=== PATIENT | female | born 1955 | race Caucasian/White ===

== ENCOUNTER 2016-06-18 15:31 | Emergency (ER) | payer OTHER ==
[2016-06-18 15:43] VITALS: TEMP 97.7; BMI 29.2
--- NOTE | 2016-06-18 17:56 | PDOC ---
[id number] 4d FATIGUE, DIZZINESS, CHILLS Time Seen by Provider: 06/18/16 17:50 History Source: Patient Exam Limitations: No Limitations - History of Present Illness Initial Comments: 06/18/16 17:55 CHIEF COMPLAINT: Weakness HISTORY OF PRESENT ILLNESS: This is a 60 year old female with a history of depression, HTN, asthma, tobacco use (1 pack daily), appendectomy, umbilical hernia repair, and revision of her umbilical hernia repair approximately 3 months ago at [facility]. She presents today for evaluation of abdominal pain at the umbilical region, constipation, and abdominal distention. She is not nauseated and has been able to pass gas normally and has been able to have bowel movements if she takes stool softeners. She believes that the symptoms began one month ago when she screamed during a pelvic exam. Vital signs on arrival are unremarkable. PCP is Dr. Carranza. REVIEW OF SYSTEMS: GENERAL/CONSTITUTIONAL: No fever or chills. No weakness. No weight change. HEAD, EYES, EARS, NOSE AND THROAT: No change in vision. No ear pain or discharge. No sore throat. CARDIOVASCULAR: No chest pain or palpitations. RESPIRATORY: No cough, wheezing, or shortness of breath. GASTROINTESTINAL: See HPI. GENITOURINARY: No dysuria, frequency, or change in urination. MUSCULOSKELETAL: No joint or muscle swelling or pain. No neck or back pain. SKIN: No rash or easy bruising. NEUROLOGIC: No headache, vertigo, loss of consciousness, or loss of sensation. PSYCHIATRIC: No depression or anxiety. ENDOCRINE: No increased thirst. No abnormal weight change. HEMATOLOGIC/LYMPHATIC: No anemia, easy bleeding, or history of blood clots. ALLERGIC/IMMUNOLOGIC: No hives or skin allergy. No latex allergy. PHYSICAL EXAM: GENERAL: The patient is awake, alert, and fully oriented, in no acute distress. HEAD: Normal with no signs of trauma. ENT: Pupils equal, round and reactive to light, extraocular movements intact, sclera anicteric, conjunctiva clear. Neck supple. LUNGS: Clear to auscultation bilaterally. Normal excursion. No respiratory distress or use of accessory muscles. CV: RRR, S1/S2, no MRG. Cap refill < 2 sec. ABDOMEN: Soft, mildly distended, tender to deep palpation at umbilicus, bowel sounds normoactive. EXTREMITIES: Normal range of motion, no edema. NEUROLOGICAL: Normal speech, normal gait. CN II-XII grossly intact. PSYCH: Normal mood, normal affect. SKIN: Warm, dry, normal turgor, no rashes or lesions noted. Past History - Past Medical History Allergies/Adverse Reactions: Allergies Allergy/AdvReac Type Severity Reaction Status Date / Time No Known Allergies Allergy Verified 06/18/16 15:37 Home Medications: Ambulatory Orders Diazepam [Valium -] 10 mg PO BID 02/13/14 Paroxetine Mesylate [Pexeva] 10 mg PO DAILY 02/13/14 Trazodone HCl [Desyrel -] 50 mg PO HS 02/13/14 Oxycodone HCl/Acetaminophen [Percocet 10-325 mg Tablet] 1 each PO PRN 01/01/16 Oxycodone HCl/Acetaminophen [Percocet 5-325 mg Tablet -] 1 tab PO TID PRN #10 tablet MDD 3 01/01/16 Tramadol HCl [Ultram] 50 mg PO Q6H 06/18/16 Asthma: Yes CVA: No Diabetes: No HTN: Yes Suicide Attempt (Hx): No - Surgical History Abdominal Surgery: Yes (EXPLORATORY SX, UMBILICAL HERNIA REPAIR) Appendectomy: Yes - Immunization History Immunization Up to Date: No - Psycho/Social/Smoking Cessation Hx Anxiety: Yes Suicidal Ideation: No Smoking Status: No Smoking History: Current every day smoker Have you smoked in the past 12 months: Yes Number of Cigarettes Smoked Daily: 20 Information on smoking cessation initiated: No 'Breaking Loose' booklet given: 03/11/16 Hx Alcohol Use: No Drug/Substance Use Hx: No Substance Use Type: None *Physical Exam - Vital Signs Last Vital Signs Temp Pulse Resp BP Pulse Ox 97.7 F 76 16 119/73 95 06/18/16 15:38 06/18/16 15:38 06/18/16 15:38 06/18/16 15:38 06/18/16 15:38 Heart Score/ECG Review - ECG Intrepretation Comment:: 06/18/16 19:12 NSR, rate of 64, no ST or T wave changes ED Treatment Course - LABORATORY CBC & Chemistry Diagram: 06/18/16 18:08 06/18/16 18:08 - RADIOLOGY Radiology Studies Ordered: Category Date Time Status CHEST X-RAY PORTABLE* [RAD] Stat Radiology 06/18/16 17:54 Ordered Medical Decision Making - Medical Decision Making 06/18/16 19:09 A/P: 60 year old female with abdominal distention, constipation, and pain at site of umbilical hernia repair. 1. EKG 2. Basic labs 3. Morphine 4mg IVP for pain 4. CTAP with PO/IV contrast Patient developed redness in the arm proximal to injection site after receiving morphine. No shortness of breath, no redness or hives elsewhere. Benadryl 25mg IVP given. *DC/Admit/Observation/Transfer Diagnosis at time of Disposition: Abdominal pain Qualifiers: Abdominal location: upper abdomen, unspecified Qualified Code(s): R10.10 - Upper abdominal pain, unspecified - Discharge Dispostion Disposition: HOME Condition at time of disposition: Improved - Referrals Referrals: Shaheed Carranza MD [Primary Care Provider] - - Patient Instructions Printed Discharge Instructions: DI for Abdominal Pain-Adult Additional Instructions: FOLLOW UP WITH DR. CARRANZA THIS WEEK. CALL TO SCHEDULE APPOINTMENT. CONTINUE YOUR CURRENT MEDICATIONS PRESCRIBED. GET REST. EAT PLENTY FRUITS AND VEGGIES. DRINK PLENTY WATER. TYLENOL OR MOTRIN FOR PAIN NEEDED. Print Language: ICELANDIC
[2016-06-18] MEDS ORDERED: morphine CARPU-JECT 4 MG/1 ML DISP.SYRIN IVPUSH ONE (18:24)
[2016-06-18] MEDS ORDERED: ONDANSETRON 4 MG/2 ML VIAL IVPUSH ONE (18:24)
[2016-06-18] MEDS ORDERED: ONDANSETRON 4 MG/2 ML VIAL ONE (18:33)
[2016-06-18] MEDS ORDERED: morphine CARPU-JECT 4 MG/1 ML DISP.SYRIN ONE (18:33)
[2016-06-18 18:48] LABS: BASOPHIL 1.3 % (0-2.0); EOSINOPHIL 3.1 % (0-4.5); MCH 30.1 pg (25.7-33.7); MCHC 33.1 g/dl (32.0-36.0); MEAN CELL VOLUME 90.9 fl (80-96); MEAN PLT VOLUME 9.1 fl (7.5-11.1); NEUTROPHILS 57.7 % (42.8-82.8); PLATELET COUNT 175 K/MM3 (134-434); WHITE BLOOD COUNT 7.8 K/mm3 (4.0-10.0)
[2016-06-18 19:20] LABS: ALBUMIN 3.7 g/dl (3.4-5.0); ANION GAP 7 (8-16); BILIRUBIN,TOTAL 0.4 mg/dL (0.2-1.0); CALCIUM 8.9 mg/dL (8.5-10.1); CO2 31 mmol/L (21-32); CREATININE 0.8 mg/dL (0.55-1.02); GLUCOSE,RANDOM 92 mg/dL (74-106); SGOT/AST 12 U/L (15-37); SGPT/ALT 14 U/L (12-78); TOT PROT 7.7 g/dl (6.4-8.2)
[2016-06-18 19:23] LABS: ALK PHOS 90 U/L (45-117); TROPONIN I < 0.02 ng/ml (0.00-0.05)
--- NOTE | 2016-06-18 23:15 | PDOC ---
*Physical Exam - Vital Signs Last Vital Signs Temp Pulse Resp BP Pulse Ox 97.7 F 76 16 119/73 95 06/18/16 15:38 06/18/16 15:38 06/18/16 15:38 06/18/16 15:38 06/18/16 15:38 ED Treatment Course - LABORATORY CBC & Chemistry Diagram: 06/18/16 18:08 06/18/16 18:08 - ADDITIONAL ORDERS Additional order review: Laboratory Results 06/18/16 18:08 Sodium 139 Potassium 4.1 Chloride 101 Carbon Dioxide 31 D Anion Gap 7 L BUN 14 Creatinine 0.8 Creat Clearance w eGFR > 60 Random Glucose 92 Calcium 8.9 Total Bilirubin 0.4 D AST 12 L D ALT 14 Alkaline Phosphatase 90 Creatine Kinase 31 Troponin I < 0.02 Total Protein 7.7 Albumin 3.7 06/18/16 18:08 RBC 5.29 H MCV 90.9 MCHC 33.1 RDW 14.0 MPV 9.1 Neutrophils % 57.7 Lymphocytes % 31.7 Monocytes % 6.2 Eosinophils % 3.1 Basophils % 1.3 - Medications Given in the ED: ED Medications Discontinued Medications Generic Name Dose Route Start Last Admin Trade Name Freq PRN Reason Stop Dose Admin Diphenhydramine HCl 25 mg 06/18/16 18:46 06/18/16 19:00 Benadryl Injection - IVPUSH 06/18/16 18:47 25 mg ONCE ONE Administration Morphine Sulfate 4 mg 06/18/16 18:24 06/18/16 18:37 Morphine Injection - IVPUSH 06/18/16 18:25 4 mg ONCE ONE Administration Ondansetron HCl 4 mg 06/18/16 18:24 06/18/16 18:37 Zofran Injection IVPUSH 06/18/16 18:25 4 mg ONCE ONE Administration Progress Note - Progress Note Progress Note: SPOKE TO PATIENT REGARDING CT-SCAN RESULTS. (NEG). PATIENT REPORTS IMPROVEMENT IN HER SYMPTOMS. NO CHANGE IN APPETITE. CURRENTLY ON STOOL SOFTENERS. NOT CONSTIPATED. PATIENT PLAN IS TO FOLLOW UP WITH PMD THIS WEEK. *DC/Admit/Observation/Transfer Diagnosis at time of Disposition: Abdominal pain Qualifiers: Abdominal location: upper abdomen, unspecified Qualified Code(s): R10.10 - Upper abdominal pain, unspecified - Discharge Dispostion Disposition: HOME Condition at time of disposition: Improved Admit: No - Patient Instructions Printed Discharge Instructions: DI for Abdominal Pain-Adult Additional Instructions: FOLLOW UP WITH DR. CARRANZA THIS WEEK. CALL TO SCHEDULE APPOINTMENT. CONTINUE YOUR CURRENT MEDICATIONS PRESCRIBED. GET REST. EAT PLENTY FRUITS AND VEGGIES. DRINK PLENTY WATER. TYLENOL OR MOTRIN FOR PAIN NEEDED. Print Language: SERBIAN
[2016-06-18 23:34] VITALS: BP 121/70; PULSE 73
--- NOTE | 2016-06-19 10:36 | EKG ---
Test Reason : Blood Pressure : / mmHG Vent. Rate : 064 BPM Atrial Rate : 064 BPM P-R Int : 140 ms QRS Dur : 086 ms QT Int : 432 ms P-R-T Axes : 068 034 044 degrees QTc Int : 445 ms NORMAL SINUS RHYTHM NORMAL ECG WHEN COMPARED WITH ECG OF 30-DEC-2013 15:39, NO SIGNIFICANT CHANGE WAS FOUND Confirmed by VIANEY STINSON MD ([id number]) on 06/19/2016 10:36:09 AM Referred By: Confirmed By:VIANEY STINSON MD
== END 2016-06-18 23:35 | disposition home or self-care (01) ==
LOC: JER 15:31
PROC: 3E033GC Introduction of Other Therapeutic Substance into Peripheral Vein, Percutaneous Approach (ICD-10-PCS; principal; 2016-06-18)
PROC: 3E033NZ Introduction of Analgesics, Hypnotics, Sedatives into Peripheral Vein, Percutaneous Approach (ICD-10-PCS; 2016-06-18)
DX: R10.10 Upper abdominal pain, unspecified (principal); F32.9 Major depressive disorder, single episode, unspecified; I10 Essential (primary) hypertension; J45.909 Unspecified asthma, uncomplicated; Z98.890 Other specified postprocedural states; F17.210 Nicotine dependence, cigarettes, uncomplicated
CPT/HCPCS: 36415; 71010-TC; 74177-TC; 80053; 82550; 84484; 85025; 93005; 93010; 96374; 96375; 99283-25; Q9967

== ENCOUNTER 2018-09-28 11:43 | Emergency (ER) | payer OTHER ==
[2018-09-28 11:53] VITALS: BP 143/80; PULSE 75; TEMP 97.9; BMI 33.1
--- NOTE | 2018-09-28 12:39 | PDOC ---
History of Present Illness - General Chief Complaint: Injury Stated Complaint: FALL/ PELVIS PAIN Time Seen by Provider: 09/28/18 12:36 History Source: Patient - History of Present Illness Occurred: reports: other Severity: reports: moderate Past History - Past Medical History Allergies/Adverse Reactions: Allergies Allergy/AdvReac Type Severity Reaction Status Date / Time No Known Allergies Allergy Verified 09/28/18 11:53 Home Medications: Ambulatory Orders Diazepam [Valium -] 10 mg PO BID 02/13/14 Paroxetine Mesylate [Pexeva] 10 mg PO DAILY 02/13/14 traZODone HCL [Desyrel -] 50 mg PO HS 02/13/14 Oxycodone HCl/Acetaminophen [Percocet 10-325 mg Tablet] 1 each PO PRN 01/01/16 Oxycodone HCl/Acetaminophen [Percocet 5-325 mg Tablet -] 1 tab PO TID PRN #10 tablet MDD 3 01/01/16 traMADol HCL [Ultram] 50 mg PO Q6H 06/18/16 Acetaminophen [Tylenol -] 1,000 mg PO Q6H #30 tablet 09/28/18 Asthma: Yes CVA: No COPD: No Diabetes: No HTN: Yes Psychiatric Problems: Yes (depression, anxiety) - Surgical History Abdominal Surgery: Yes (EXPLORATORY SX, UMBILICAL HERNIA REPAIR) Appendectomy: Yes - Immunization History Immunization Up to Date: No - Suicide/Smoking/Psychosocial Hx Smoking Status: No Smoking History: Current every day smoker Have you smoked in the past 12 months: Yes Number of Cigarettes Smoked Daily: 10 Information on smoking cessation initiated: No 'Breaking Loose' booklet given: 03/11/16 Hx Alcohol Use: No Drug/Substance Use Hx: No Substance Use Type: None Review of Systems - Review of Systems Constitutional: No: Chills, Fever ABD/GI: No: Nausea, Vomiting, Abdominal cramping : No: Burning, Dysuria, Discharge, Flank Pain, Hematuria Musculoskeletal: Yes: Back Pain Neurological: No: Numbness, Tingling, Weakness *Physical Exam - Vital Signs Last Vital Signs Temp Pulse Resp BP Pulse Ox 97.9 F 75 19 143/80 95 09/28/18 11:49 09/28/18 11:49 09/28/18 11:49 09/28/18 11:49 09/28/18 11:49 - Physical Exam General Appearance: Yes: Appropriately Dressed. No: Apparent Distress HEENT: positive: Normal Voice Neck: positive: Supple. negative: Tender Respiratory/Chest: negative: Respiratory Distress Female Pelvic Exam: positive: normal external exam, other (no obvious prolapse) Gastrointestinal/Abdominal: positive: Soft. negative: Tender Musculoskeletal: positive: Vertebral Tenderness (to midline LS spine). negative : CVA Tenderness Integumentary: positive: Dry, Warm Neurologic: positive: Fully Oriented, Alert, Normal Mood/Affect, Motor Strength 5/5 Medical Decision Making - Medical Decision Making 09/28/18 12:37 63 yo F, HTN, asthma, here w/ LBP s/p fall. Patient states about 3 days ago while descending steps, lost her balance and fell striking her back against banister. Able to bear weight w/ her cane w/ no neuro sxs. No head injury, LOC, LINARES, dizziness, n/v or neck pain. Not on blood thinners. No chest pain or dizziness prior to fall. Has not taken anything for pain. Patient also here for evaluation of mass protruding from her vagina that she noticed at some point after fall that has since resolved. Denies any pain, vaginal bleed, discharge, dysuria, nausea, vomiting, fever or chills at this time. See exam LBP s/p fall M/l MSK No neuro sxs XR neg for fx -dc w/ pain control, pmd f/u Reports soft mass protruding from vagina at home 3 days ago Pelvic exam wnl w/ no e/o obvious prolapse at this time Has upcoming [facility] appt *DC/Admit/Observation/Transfer Diagnosis at time of Disposition: Back sprain - Discharge Dispostion Disposition: HOME Condition at time of disposition: Good - Prescriptions Prescriptions: Acetaminophen [Tylenol -] 1,000 mg PO Q6H #30 tablet - Referrals Referrals: Shaheed Lockett MD [Primary Care Provider] - - Patient Instructions Additional Instructions: Your x-ray showed no fracture . Take Tylenol as needed for pain and follow-up with your PMD. Your pelvic exam was normal in ED. Please follow-up with your [facility] for further evaluation - Post Discharge Activity
[2018-09-28] MEDS ORDERED: ACETAMINOPHEN 325 MG TABLET (FP) ONE (13:43)
== END 2018-09-28 13:49 | disposition home or self-care (01) ==
LOC: JER 11:43
DX: S39.012A Strain of muscle, fascia and tendon of lower back, initial encounter (principal); W10.2XXA Fall (on)(from) incline, initial encounter; Y93.89 Activity, other specified; Y92.89 Other specified places as the place of occurrence of the external cause; Y99.8 Other external cause status; I10 Essential (primary) hypertension; J45.909 Unspecified asthma, uncomplicated; F41.9 Anxiety disorder, unspecified; F32.9 Major depressive disorder, single episode, unspecified; F17.210 Nicotine dependence, cigarettes, uncomplicated
CPT/HCPCS: 72100-TC-FY; 99282-25

== ENCOUNTER 2018-12-08 04:53 | Day surgery (SDC) | payer OTHER ==
[2018-12-06 15:50] VITALS: BMI 32.2
[2018-12-08] MEDS ORDERED: ACETAMINOPHEN 325 MG TABLET (FP) PO PRN (08:45)
[2018-12-08] MEDS ORDERED: LACTATED RINGERS SOLUTION 1,000 ML IV SCH ×2 (08:45→12:00)
--- NOTE | 2018-12-08 08:45 | HP ---
History & Physical Update - History History: No Change - Physical Physical: No Change - Assessment Assessment: No Change - Plan Plan: No Change (Agree with H&P from 12/06, for hysteroscopy, D&C)
[2018-12-08] MEDS ORDERED: MIDAZOLAM HCL 2 MG/2 ML SINGLE DOSE VIAL ONE (10:46)
[2018-12-08] MEDS ORDERED: PROPOFOL 20 ML ONE (10:51)
[2018-12-08] MEDS ORDERED: SEVOFLURANE 250 ML BTL ONE (11:13)
[2018-12-08] MEDS ORDERED: ACETAMINOPHEN INJECTION 100 ML IVPB ONE (11:29)
[2018-12-08] MEDS ORDERED: ACETAMINOPHEN 1000 MG/100 ML VIAL (NON FORMULARY) IVPB ONE (11:58)
[2018-12-08] MEDS ORDERED: oxyCODONE HCL 5 MG TABLET PO PRN (11:58)
[2018-12-08] MEDS ORDERED: ONDANSETRON 4 MG/2 ML VIAL IVPUSH PRN (11:58)
--- NOTE | 2018-12-08 12:00 | OP ---
Operative Note - Note: Operative Date: 12/08/18 ([id number]) Pre-Operative Diagnosis: endometrial polyp, post menopausal Operation: hysteroscopic polypectomy, D&C Findings: endometrial polyp on right uterine wall Post-Operative Diagnosis: Same as Pre-op Surgeon: Seema Finn Anesthesiologist/PSYCHOTHERAPIST SOCIAL WORKER: Ilene Soliman MD Anesthesia: General (wtih LMA) Specimens Removed: endometrial curettings, endometrial polyp Estimated Blood Loss (mls): 5 Operative Report Dictated: Yes
[2018-12-08 13:34] VITALS: BP 145/97; PULSE 96; TEMP 98.6
--- NOTE | 2018-12-08 16:23 | OP ---
DATE OF OPERATION: 12/08/2018 PREOPERATIVE DIAGNOSIS: Pelvic pain, uterine polyp noted on pelvic ultrasound, with endometrial fluid and failed endometrial biopsy. POSTOPERATIVE DIAGNOSES: Pelvic pain, uterine polyp noted on pelvic ultrasound, with endometrial fluid and failed endometrial biopsy. PROCEDURE: Hysteroscopic polypectomy, suction dilation and curettage. SURGEON: Seema Finn MD ANESTHESIA: LMA by Dr. Soliman. ESTIMATED BLOOD LOSS: 5 mL. SPECIMENS REMOVED: Endometrial curettings and endometrial polyp. COUNTS: Sponge and instrument count reported to be correct. COMPLICATIONS: None. DISPOSITION: Stable to PACU. BRIEF HISTORY AND PROCEDURE: The patient is a 63-year-old female who was seen in our office with complaints of pelvic pain, upon ultrasound examination was found to have an endometrial polyp and fluid trapped in the endometrium. As the patient was postmenopausal, a biopsy of the uterine polyp was attempted in the office with an endometrial biopsy; however, inadequate tissue was obtained. Patient was then scheduled to undergo a hysteroscopic evaluation of the uterine cavity, D&C, as well as polypectomy. The consents for the procedure were signed in the office. She was then admitted to [facility] on December 08, 2018. Consents were reconfirmed. She was taken back to the operating room, placed in the dorsal lithotomy position and given general anesthesia with LMA by Dr. Soliman without difficulty. She was prepped and draped in the usual sterile fashion. A hard timeout was performed. Dean specula were placed inside the vagina until the cervix was visualized. The cervix was grasped with a tenaculum and dilated to accommodate a diagnostic hysteroscope, which was advanced to the fundus of the uterus. Bilateral tubal ostia were noted. A right uterine wall polyp was appreciated. Using sharp curettage as well as polyp forceps, the polyp was removed in its entirety and suction D&C was performed. One final pass with the hysteroscope revealed no evidence of uterine perforation. All instruments were removed from vagina. Minimal bleeding was noted from the cervix. The patient was awoken from anesthesia. Sponge and instrument count was reported to be correct. She was recovering in stable condition in the PACU after the procedure. SEEMA FINN DO /[id number]
--- NOTE | 2018-12-09 16:44 | PATH ---
Surgical Pathology Report Patient Name: JULIO SOSA [facility]. Rec. #: [id number] /Age/Gender: 1955 (Age: 63) / F Account: [id number] Location: [facility] SURGICAL Taken: 12/08/2018 Received: 12/08/2018 Reported: 12/09/2018 Physicians: Seema Finn M.D. Specimen(s) Received ENDOMETRIAL CURETTINGS AND POLYP Clinical History Endometrial polyp/fluid Final Diagnosis ENDOMETRIAL CURETTINGS AND POLYP, SUCTION DILATION AND CURETTAGE: MIXED ENDOMETRIAL AND ENDOCERVICAL POLYP. Electronically Signed Rachel Noguera M.D. Gross Description Received in formalin labeled "endometrial curetting and polyp," is a 2.3 x 1.0 x 0.3 cm pink-jaffe, polypoid portion of soft tissue admixed with blood-tinged mucous. The specimen is entirely submitted in one cassette. /12/08/2018 saudi12/08/2018
== END 2018-12-08 13:30 | disposition home or self-care (01) ==
LOC: JASU-SURG 04:53
PROVIDERS: ATTEND Obstetrics & Gynecology
PROC: 0UB98ZX Excision of Uterus, Via Natural or Artificial Opening Endoscopic, Diagnostic (ICD-10-PCS; principal; 2018-12-08 09:30)
PROC: 0UDB8ZX Extraction of Endometrium, Via Natural or Artificial Opening Endoscopic, Diagnostic (ICD-10-PCS; 2018-12-08 09:30)
DX: N84.0 Polyp of corpus uteri (principal); R10.2 Pelvic and perineal pain
CPT/HCPCS: 88305-TC; 94760; J0131